=== PATIENT | male | born 1950 | race Caucasian/White ===

== ENCOUNTER → 2021-04-29 | Outpatient (CLI) | payer MEDICARE ==
--- NOTE | 2021-04-29 14:41 | US ---
EXAMINATION TYPE: US kidneys/renal and bladder DATE OF EXAM: 04/29/2021 COMPARISON: None CLINICAL HISTORY: 70-year-old male R94.4 Abnormal kidney results. Abnormal renal labs TECHNIQUE: Multiple sonographic images of the kidneys and bladder are obtained. FINDINGS: EXAM MEASUREMENTS: Right Kidney: 9.8 x 6.0 x 6.3 cm Left Kidney: 9.2 x 5.3 x 4.7 cm No hydronephrosis on either side. Bladder: wnl Bilateral Jets seen: Only right jet visualized IMPRESSION: No hydronephrosis.
== END | disposition home or self-care (01) ==
LOC: RADUSWWP 12:05
PROVIDERS: ATTEND Internal Medicine
DX: R94.4 Abnormal results of kidney function studies (principal)
CPT/HCPCS: 76770

== ENCOUNTER 2022-06-23 11:00 | Day surgery (SDC) | payer MEDICARE ==
[2022-06-19 15:54] VITALS: BMI 30.1
[~2022-06-23 11:00] MED LIST: LACTATED RINGERS 1,000 ML IV SCH; LIDOCAINE 1% (10MG/ML) FOR IV START INTRADERMA PRN
[2022-06-23] MEDS ORDERED: LACTATED RINGERS 1,000 ML IV ONE (11:14)
[2022-06-23 11:23] VITALS: RESP 16; TEMP 98.4
[2022-06-23] MEDS ORDERED: LIDOCAINE 2% INJ 20 MG/ML (2 ML VIAL) ONE (12:58)
[2022-06-23] MEDS ORDERED: PROPOFOL 10 MG/ML 20 ML VIAL IV ONE (12:58)
--- NOTE | 2022-06-23 13:22 | P.PCN ---
Date of Procedure: 06/23/22 Procedure(s) Performed: BRIEF HISTORY: Patient is a 71-year-old pleasant white male scheduled for an elective colonoscopy as a part of screening for colon cancer and family history of colon cancer. His brother was diagnosed with colon cancer at age 60. PROCEDURE PERFORMED: Colonoscopy. PREOPERATIVE DIAGNOSIS: Screening for colon cancer and family history of colon cancer. IV sedation per Anesthesia. PROCEDURE: After informed consent was obtained, the patient, was brought into the endoscopy unit. IV sedation was administered by Anesthesia under continuous monitoring. Digital rectal examination was normal. Initially the Olympus CF-160 flexible video colonoscope was then inserted in the rectum, gradually advanced into the cecum without any difficulty. Careful examination was performed as the scope was gradually being withdrawn. Ileocecal valve and the appendiceal orifice were visualized and appeared normal. Prep was excellent. Mucosa of the cecum, ascending colon, transverse colon, descending colon, sigmoid colon, and rectum appeared normal. Retroflexion was performed in the rectum and no lesions were seen. The patient tolerated the procedure well. IMPRESSION: Normal-appearing colon from rectum to cecum no evidence of colorectal neoplasia. Scattered sigmoid diverticulosis. RECOMMENDATIONS: Findings of this examination were discussed with the patient as well as his family. He was advised to have a repeat colonoscopy in 5 years from now because of the family history of colon cancer.
[2022-06-23 13:45] VITALS: BP 135/79; PULSE 64
== END 2022-06-23 14:01 | disposition home or self-care (01) ==
LOC: ORWHC2ENDO 11:00
PROVIDERS: ATTEND Internal Medicine Gastroenterology
DX: Z12.11 Encounter for screening for malignant neoplasm of colon (principal); K57.30 Diverticulosis of large intestine without perforation or abscess without bleeding; Z80.0 Family history of malignant neoplasm of digestive organs
CPT/HCPCS: J2704; J2001; G0105; 45378

== ENCOUNTER → 2022-11-13 | Outpatient (CLI) | payer MEDICARE ==
--- NOTE | 2022-11-13 16:32 | US ---
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 Hypertension. TECHNIQUE: Carotid duplex ultrasound examination. Indirect Doppler criteria was utilized. FINDINGS: EXAM MEASUREMENTS: RIGHT: Peak Systolic Velocity (PSV) cm/sec ----- Right CCA: 83.1 ----- Right ICA: 83.1 ----- Right ECA: 123.7 ICA/CCA ratio: 1.0 RIGHT: End Diastole cm/sec ----- Right CCA: 19.3 ----- Right ICA: 16.0 ----- Right ECA: 17.1 LEFT: Peak Systolic Velocity (PSV) cm/sec ----- Left CCA: 101.7 ----- Left ICA: 72.9 ----- Left ECA: 105.6 ICA/CCA ratio: 0.7 LEFT: End Diastole cm/sec ----- Left CCA: 18.9 ----- Left ICA: 21.5 ----- Left ECA: 15.0 VERTEBRALS (direction of flow): Right Vertebral: Antegrade Left Vertebral: Antegrade Rhythm: Normal ASSOCIATE DIRECTOR OF SALES NOTES: No elevated velocities at this time. Intimal thickening seen bilaterally. IMPRESSION: Less than 50% stenosis of the bilateral carotid bifurcations. Criteria for Assigning % of Stenosis / Diameter reduction (Estimation based on the indirect measurements of the internal carotid artery velocities (ICA PSV). 1. Normal (no stenosis)=ICA PSV < 125 cm/s: ratio < 2.0: ICA EDV<40 cm/s. 2. Less than 50% stenosis=ICA PSV < 125 cm/s: ratio < 2.0: ICA EDV<40 cm/s. 3. 50 to 69% stenosis=ICA PSV of 125 to 230 cm/s: ration 2.0 ? 4.0: ICA EDV 40-100 cm/s. 4. Greater than 70% stenosis to near occlusion= ICA PSV > 230 cm/s: ratio > 4.0: ICA EDV > 100 cm/s. 5. Near occlusion= ICA PSV velocities may be low or undetectable: variable ratio and ICA EDV. 6. Total occlusion=unable to detect flow.
== END | disposition home or self-care (01) ==
LOC: RADUSWWP 14:43
PROVIDERS: ATTEND Internal Medicine
DX: I65.23 Occlusion and stenosis of bilateral carotid arteries (principal); I10 Essential (primary) hypertension
CPT/HCPCS: 93880

== ENCOUNTER → 2022-11-24 | Outpatient (CLI) | payer MEDICARE ==
--- NOTE | 2022-11-24 15:22 | US ---
EXAMINATION TYPE: US kidneys/renal and bladder DATE OF EXAM: 11/24/2022 COMPARISON: NONE CLINICAL INDICATION: Male, 72 years old with history of N28.9 DISORDER OF KIDNEY AND URETER, UNSPECIF IED; abn labs EXAM MEASUREMENTS: Right Kidney: 10.2 x 5.4 x 7.0 cm Left Kidney: 9.0 x 3.8 x 5.0 cm Right Kidney: No hydronephrosis or masses seen Left Kidney: No hydronephrosis or masses seen Bladder: wnl Bilateral Jets seen: Yes There is no evidence for hydronephrosis at this point in time. No nephrolithiasis is seen. No nina s are identified. The urinary bladder is anechoic. Bilateral ureteral jets are seen. IMPRESSION: Negative evaluation
== END | disposition home or self-care (01) ==
LOC: RADUSWWP 13:55
PROVIDERS: ATTEND Internal Medicine
DX: N28.9 Disorder of kidney and ureter, unspecified (principal)
CPT/HCPCS: 76770

== ENCOUNTER → 2024-12-21 | Outpatient (CLI) | payer MEDICARE ==
--- NOTE | 2024-12-21 11:20 | US ---
EXAMINATION TYPE: US carotid duplex BILAT DATE OF EXAM: 12/21/2024 COMPARISON: 11/13/2022 carotid ultrasound. CLINICAL INDICATION: Male, 74 years old with history of I65.23 CAROTID STENOSIS BILATERAL; Additional History: .... TECHNIQUE: Grayscale, color Doppler and spectral Doppler evaluation of the bilateral carotid systems and vertebral arteries. Indirect Doppler criteria was utilized. FINDINGS: EXAM MEASUREMENTS: RIGHT: Peak Systolic Velocity (PSV) cm/sec ----- Right CCA: 91.6 ----- Right ICA: 63.0 ----- Right ECA: 98.7 ICA/CCA ratio: 0.7 RIGHT: End Diastole cm/sec ----- Right CCA: 11.0 ----- Right ICA: 9.9 ----- Right ECA: 10.8 LEFT: Peak Systolic Velocity (PSV) cm/sec ----- Left CCA: 75.8 ----- Left ICA: 66.3 ----- Left ECA: 70.1 ICA/CCA ratio: 0.9 LEFT: End Diastole cm/sec ----- Left CCA: 12.7 ----- Left ICA: 19.0 ----- Left ECA: 9.8 VERTEBRALS (direction of flow): Right Vertebral: Antegrade Left Vertebral: Antegrade Rhythm: Normal TOOL CRIB SUPERVISOR NOTES: no elevated velocities, plaque or significant stenosis seen bilaterally Color Doppler imaging shows patency with blood flow throughout the carotid artery. Spectral waveforms are within normal limits. IMPRESSION: No significant change from prior. Right: No hemodynamically significant stenosis. Left: No hemodynamically significant stenosis. Criteria for Assigning % of Stenosis / Diameter reduction (Estimation based on the indirect measurements of the internal carotid artery velocities (ICA PSV). 1. Normal (no stenosis)=ICA PSV < 180 cm/s: ratio < 2.0: ICA EDV<40 cm/s. 2. Less than 50% stenosis=ICA PSV < 180 cm/s: ratio < 2.0: ICA EDV<40 cm/s. 3. 50 to 69% stenosis=ICA PSV of 180 to 230 cm/s: ration 2.0 ? 4.0: ICA EDV 40-100 cm/s. PSV 125-180 cm/sec and ICA/CCA PSV Ratio ? 2.0 is also consistent with 50-69% stenosis 4. Greater than 70% stenosis to near occlusion= ICA PSV > 230 cm/s: ratio > 4.0: ICA EDV > 100 cm/s. 5. Near occlusion= ICA PSV velocities may be low or undetectable: variable ratio and ICA EDV. 6. Total occlusion=unable to detect flow. [facility], , 12/21/2024 11:18 AM
== END | disposition home or self-care (01) ==
LOC: RADUSWWP 10:41
PROVIDERS: ATTEND Internal Medicine
DX: I65.23 Occlusion and stenosis of bilateral carotid arteries (principal)
CPT/HCPCS: 93880

== ENCOUNTER 2025-01-16 05:33 | Day surgery (SDC) | payer MEDICARE ==
[2025-01-16] MEDS ORDERED: NITROGLYCERIN SL TABS 0.4 MG TAB SUBLINGUAL PRN ×2 (05:53→08:38)
[2025-01-16] MEDS ORDERED: ALPRAZolam 0.25 MG TAB PO PRN (05:53)
[2025-01-16] MEDS ORDERED: ALPRAZolam 0.5 MG TAB PO PRN (05:53)
[2025-01-16] MEDS: SODIUM CHLORIDE 0.9% 1,000 ML in EMPTY BAG 1 BAG IV ONE (06:30)
[2025-01-16] MEDS: ATORVASTATIN 80 MG TAB PO STA (06:31)
[2025-01-16] MEDS: ASPIRIN 325 MG TAB PO STA (06:31)
[2025-01-16] MEDS: IV FLUID CONTINUATION 1,000 ML IV ONE (06:39)
[2025-01-16] MEDS: HEPARIN SODIUM,PORCINE (1 ML) 2,500 UNIT in SODIUM CHLORIDE 0.9% 250 ML IRRIGATION PRN (07:35)
[2025-01-16] MEDS: HEPARIN SODIUM,PORCINE 10,000 UNIT in SODIUM CHLORIDE 0.9% 1,000 ML IRRIGATION PRN (07:35)
[2025-01-16] MEDS: MIDAZOLAM 2 MG/2 ML VIAL IVP ONE (07:50)
[2025-01-16] MEDS: LIDOCAINE 1% INJ 10MG/ML (20 ML MDV) SQ ONE (07:59)
[2025-01-16] MEDS: VERAPAMIL SYRINGE (5 MG/10 ML) INTRAARTER ONE (08:01)
[2025-01-16] MEDS: HEPARIN SODIUM 1,000 UN/ML (10ML VL) IVP ONE (08:01)
[2025-01-16] MEDS: TICAGRELOR 90 MG TAB PO ONE (08:20)
[2025-01-16] MEDS: NITROGLYCERIN 1000MCG/10ML SYRINGE INTRACORON ONE (08:34)
[2025-01-16] MEDS: niCARdipine Syringe (1,000 mcg/10 mL) INTRACORON ONE (08:35)
[2025-01-16] MEDS ORDERED: RX INFO: IV CONTRAST WAS GIVEN 1 EACH MISC MISCELLANE PRN (08:38)
[2025-01-16] MEDS ORDERED: ATROPINE SULFATE 0.1 MG/ML 10ML SYRINGE IV PRN (08:38)
[2025-01-16] MEDS ORDERED: ZOLPIDEM 5 MG TAB PO PRN (08:38)
[2025-01-16] MEDS ORDERED: MAG HYDROX/AL HYDROX/SIMETH 30 ML CUP PO PRN (08:38)
--- NOTE | 2025-01-16 08:43 | P.PCN ---
Date of Procedure: 01/16/25 Operative Findings: CARDIAC CATHETERIZATION AND PERCUTANEOUS CORONARY INTERVENTION PERFORMING PHYSICIAN: Jimy Castro MD, [facility] PROCEDURE PERFORMED: 1. Selective right and left coronary angiogram 2. Successful stenting of mid RCA using 4.0 x 28 mm Xience MIMI with an excellent angiographic results 3. Adjunctive use of IVUS and IFR 4. Ultrasound-guided access of the right radial artery INDICATION: Symptomatic 75-year-old gentleman with abnormal myocardial perfusion imaging stress test COMPLICATION: None APPROACH: Right radial artery LEVEL OF SEDATION: Moderate with the sedation time off 38 minutes PROCEDURE DESCRIPTION: After obtaining informed consent the patient was brought to the cardiac Archer[employer] Equipment Hay Sorter. The right radial artery was cannulated using micropuncture technique under ultrasound guidance micropuncture wire passed easily then I placed a 6 Kinyarwanda 11 cm sheath at the right radial artery and give the patient 2 mg of verapamil intra-arterial and 5000 units of heparin intravenous with continuous ACT monitoring. Selective right and left coronary angiogram performed using JR4 and JL 3.5 catheters. After that I decided to do an IFR of the RCA. Anticoagulation continued using heparin with continuous ACT monitoring. Subsequently after zeroing the Dobler wire and equalized in between the Dobler wire and guiding catheter which was JR4 guiding catheter the RCA was engaged and subsequently was wired with IFR came to be at 0.88. Subsequently I decided to intervene on the RCA. I did IVUS which showed a diameter around 4 mm. Predilatation was performed using 3.5 mm balloon before I deployed 4.0 x 28 mm stent where the stent was positioned under fluoroscopy guidance and deployed under fluoroscopy guidance. IVUS was performed. After that I postdilated using initially 4.0 mm noncompliant balloon and then 4.5 mm noncompliant balloon. Final angiogram showed excellent angiographic results and the procedure was completed with no complication SELECTIVE CORONARY ANGIOGRAM: The right coronary artery: Large caliber vessel and a dominant vessel with mid RCA lesion appears to be in the range of 60 to 70% documented to be flow-limiting by Doppler wire. Left main: Is angiographically normal. Bifurcates into an LCx and LAD The left circumflex: Large caliber vessel nondominant vessel with no evidence of high-grade stenosis identified The left anterior descending artery: Large caliber vessel also with mild disease only noted CONCLUSION: 1. Severe disease involving the mid RCA. I did perform successful PCI of the RCA as described above 2. Mild disease involving the left coronary system POSTPROCEDURE MANAGEMENT: 1. Dual antiplatelet therapy using aspirin and Brilinta for at least 6 month 2. Aggressive cholesterol control 3. Follow-up with the patient
[2025-01-16] MEDS: IOPAMIDOL-370 100ML BTL INJ ONE (08:50)
[2025-01-16] MEDS: SODIUM CHLORIDE 0.9% 1,000 ML IV ONE (08:51)
[2025-01-16] MEDS ORDERED: MULTIVITAMINS, THERA 1 EACH TAB PO SCH (09:00)
[2025-01-16] MEDS: ASPIRIN 81 MG PO SCH (11:25)
[2025-01-16] MEDS: SODIUM CHLORIDE 0.9% 1,000 ML in EMPTY BAG 1 BAG IV SCH (11:26)
[2025-01-16 14:02] VITALS: BMI 29.3
[2025-01-16] MEDS: amLODIPine 5 MG TAB PO SCH (22:20)
[2025-01-16] MEDS: TICAGRELOR 90 MG TAB PO SCH (22:20)
[2025-01-17 05:20] LABS: African American GFR (CKD) 65 (>60 ml/min/1.73 sqM); Non-African American GFR(CKD) 56 (>60 ml/min/1.73 sqM)
[2025-01-17 08:12] VITALS: PULSE 59; RESP 16; TEMP 98
[2025-01-17 08:14] VITALS: BP 171/79
[2025-01-17] MEDS: MULTIVITAMINS, THERA 1 EACH TAB PO SCH (09:03)
[2025-01-17] MEDS: ATORVASTATIN 20 MG TAB PO SCH (09:03)
[2025-01-17] MEDS: LOSARTAN-HCTZ 50-12.5 MG 1 EACH TAB PO SCH (09:03)
[2025-01-17 11:41] LABS: Glucose,Whole Blood 92 mg/dL (70-110)
--- NOTE | 2025-01-17 13:58 | P.DS ---
Providers Attending physician: Jimy Castro Consults: 01/16/25 08:38 Consult Physician Routine Consulting Provider: [facility] Reason/Comments: Post Interventional patient Do you want consulting provider notified?: Already Contacted Primary care physician: Ephraim Kaplan [facility] Course: The patient is a pleasant 74-year-old gentleman who underwent yesterday heart catheterization and PCI of the RCA The patient was seen and evaluated this morning. He is asymptomatic and hemodynamically stable. The right radial site is soft and nontender with no bruises The patient is going to be discharged home on dual antiplatelet therapy and I will follow-up with the patient next week in the office Plan - Discharge Summary Discharge Rx Participant: No New Discharge Prescriptions: New Ticagrelor [Brilinta] 90 mg PO BID #180 tab Continue amLODIPine [Norvasc] 5 mg PO HS Losartan/Hydrochlorothiazide [Losartan-Hctz 100-25 mg Tab] 1 tab PO DAILY Dapagliflozin Propanediol [Farxiga] 10 mg PO DAILY Atorvastatin [Lipitor] 20 mg PO DAILY Multivitamins, Thera [Multivitamin (formulary)] 1 tab PO DAILY Aspirin 81 mg PO DAILY Discharge Medication List Atorvastatin [Lipitor] 20 mg PO DAILY 06/19/22 [History] Losartan/Hydrochlorothiazide [Losartan-Hctz 100-25 mg Tab] 1 tab PO DAILY [History] amLODIPine [Norvasc] 5 mg PO HS 06/19/22 [History] Dapagliflozin Propanediol [Farxiga] 10 mg PO DAILY 01/12/25 [History] Multivitamins, Thera [Multivitamin (formulary)] 1 tab PO DAILY 01/12/25 [History] Aspirin 81 mg PO DAILY 01/16/25 [History] Ticagrelor [Brilinta] 90 mg PO BID #180 tab 01/17/25 [Rx] Follow up Appointment(s)/Referral(s): Jimy Castro MD [STAFF PHYSICIAN] - 01/25/25 8:30 am (FOLLOW UP APPOINTMENT IS MADE. ) Patient Instructions/Handouts: *Surgery [facility] - After Heart Catheterization - Linux System Engineer Instructions, Heart Catheterization (DC)
== END 2025-01-17 13:39 | disposition home or self-care (01) ==
LOC: CATHCVL 05:33 → 6NMEDSUR 08:40 → CATHCVL 01-17 13:39
PROVIDERS: ATTEND Internal Medicine Interventional Cardiology
DX: I25.10 Atherosclerotic heart disease of native coronary artery without angina pectoris (principal); I10 Essential (primary) hypertension; E66.3 Overweight; Z95.5 Presence of coronary angioplasty implant and graft; Z68.29 Body mass index [BMI] 29.0-29.9, adult; Z79.02 Long term (current) use of antithrombotics/antiplatelets; Z79.84 Long term (current) use of oral hypoglycemic drugs; Z79.82 Long term (current) use of aspirin; Z79.899 Other long term (current) drug therapy
CPT/HCPCS: 92978; 93454; 93799; 82565; 99152; 99153; C9600; C1887; C1769 ×2; C1894; C1874; C1725 ×3; C1753; J2250; J1644 ×3; J2003; Q9967; J2305